=== PATIENT | male | born 1980 | race Hispanic/Latino ===

== ENCOUNTER 2023-05-18 14:06 | Emergency (ER) | payer SELFPAY ==
[2023-05-18 14:10] VITALS: BP 217/119; PULSE 132; RESP 20; TEMP 36.4; O2SAT 100; BMI 28.7
[2023-05-18 15:16] LABS: Add Manual Diff / Slide Review NO; Basophils Absolute Auto 0 /uL (0-100); Basophils Percent Auto 0.6 % (0-2); Eosinophils Absolute Auto 0 /uL (0-450); Eosinophils Percent Auto 0.4 % (2-4); Hematocrit 34.6 % (41-53); Hemoglobin 10.8 g/dL (13.5-17.5); Lymphocytes Absolute Auto 700 /uL (1100-4500); Lymphocytes Percent Auto 16.7 % (25-40); Mean Corpuscular HGB Conc 31.1 % (30-36); Mean Corpuscular Hemoglobin 23.7 PG (26-34); Mean Corpuscular Volume 76.3 fL (80-100); Monocytes Absolute Auto 300 /uL (0-900); Monocytes Percent Auto 6.8 % (3-14); Neutrophils Absolute Auto 3100 /uL (1500-7000); Neutrophils Percent Auto 75.5 % (50-75); Platelet Count 173 X10^3/uL (150-400); Red Blood Cell Count 4.54 X10^6/uL (4.5-5.9); White Blood Cell Count 4.1 X10^3/uL (4.5-11.0)
[2023-05-18 15:21] LABS: Alanine Aminotransferase 19 IU/L (<50); Albumin 4.2 g/dL (3.5-5.0); Alkaline Phosphatase 84 U/L (38-126); Aspartate Aminotransferase 33 IU/L (17-59); BUN Creatinine Ratio 14.3 (6-22); Bilirubin Total 0.7 mg/dL (0.2-1.3); Blood Urea Nitrogen 9 mg/dL (9-20); Calcium 8.9 mg/dL (8.4-10.2); Carbon Dioxide 24 mmol/L (22-32); Chloride 103 mmol/L (98-107); Estimated Glomerular Filt Rate > 60 mL/min (>60); Globulin 4.4 g/dL (1.7-4.1); Glucose 162 mg/dL (70-100); HEMOLYSIS < 15 (0-50); Lipase 202 U/L (23-300); Potassium 3.5 mmol/L (3.4-5.1); Sodium 141 mmol/L (137-145); Total Protein 8.6 g/dL (6.3-8.2)
--- NOTE | 2023-05-18 15:30 | ED.ABDPAIN ---
HPI - Abdominal Pain General Chief Complaint: Abdominal Pain Stated Complaint: retaining fluid in the stomach,pain,diff breathing Time Seen by Provider: 05/18/23 15:30 Source: patient Mode of arrival: Ambulatory Limitations: no limitations History of Present Illness HPI narrative: 42-year-old male with history of diabetes type 2, recent alcohol abuse quit proximally 2 months ago with increasing abdominal distention. Patient states his abdomen has become quite distended and uncomfortable. It is very tight. He has had nausea but no persistent vomiting. He states he is stooling regularly. He states he is urinating, does not notice any color changes. He has not appreciate any jaundice or skin changes. Patient states he has having a little bit of swelling in his lower extremities. Patient states no chest pain but he does feel short of breath from the fullness in his belly. Patient notes wet when he lays on his left side he is the most comfortable unable to sleep. Patient states has been slowly progressive over time. He states she has not been told he has liver issues but was drinking heavily until about 2 months ago. Patient states he has not on any prescription medications. No known drug allergies. Uses marijuana no reports of IV drugs. Patient has prior care through [facility] but prefers to follow up with your [facility] or other facilities. Related Data Allergies Allergy/AdvReac Type Severity Reaction Status Date / Time No Known Drug Allergies Allergy Verified 05/18/23 14:10 Review of Systems Review of Systems ROS Unobtainable: All systems reviewed & are unremarkable except as noted in HPI and below Patient History Social History Smoking Status: Never smoker Smoking Status: Never smoker Substance Use Type: marijuana Exam Narrative Exam Narrative: GENERAL: Alert and oriented x three, distress. HEENT: Head normocephalic, atraumatic, EOMI, pupils reactive, face symmetric, moist mucous membranes NECK: Supple, full range of motion CARDIOVASCULAR: Regular rate and rhythm without murmurs, rubs or gallops. RESPIRATORY: Breath sounds equal bilaterally, no wheezes rales or rhonchi. ABDOMEN: Soft, significantly distended male with fluid wave. Non-tender. No caput appreciated. Patient normoactive bowel sounds all 4 quadrants. No guarding or rebound, rigidity, no mass : No CVA tenderness EXTREMITIES: Normal range of motion, no clubbing, 2+ edema bilateral lower extremities. Neurovascularly intact NEUROLOGICAL: Cranial nerves II through XII grossly intact. Moving all extremities SKIN: Warm, dry, no petechiae, no rashes or lesions. Initial Vital Signs Initial Vital Signs: Vital Signs Temperature 97.5 F L 05/18/23 14:10 Pulse Rate 132 H 05/18/23 14:10 Respiratory Rate 20 05/18/23 14:10 Blood Pressure 217/119 H 05/18/23 14:10 Pulse Oximetry 100 05/18/23 14:10 Oxygen Delivery Method Room Air 05/18/23 14:10 Procedures Paracentesis Time Out Performed: Yes Indication: Ascites Procedure: therapeutic paracentesis Location: LLQ Local Anesthetic: lidocaine 2% Amount of anesthesia used (mL): 5 Bedside Ultrasound Used: yes, Ascites confirmed and location marked (and real time guidance.) Preparation: sterile prep and drape and Blade used to make casey in skin Amount of fluid obtained (mL): 5,000 Fluid: clear and sent to lab for analysis Size of Needle Used: 27 Post Procedure Exam: awake, alert, normal BP, normal HR and normal SpO2 Patient Tolerated Procedure: Well and No complications Course Orders Ordered: Discontinued Medications Ondansetron HCl (Ondansetron 4 Mg/2 Ml Inj) 4 mg IV NOW PRN PRN Reason: Nausea And Vomiting Ondansetron HCl (Ondansetron 4 Mg/2 Ml Inj) 4 mg IV NOW ONE Stop: 05/18/23 15:40 Last Admin: 05/18/23 15:47 Dose: 4 mg Documented By: MPO Vital Signs Vital signs: Vital Signs - 8 hr 05/18/23 14:10 05/18/23 16:53 Temperature 97.5 F L Pulse Rate 132 H Respiratory Rate 20 Blood Pressure 217/119 H 174/110 H Pulse Oximetry 100 Oxygen Delivery Method Room Air MDM - Abdominal Pain Lab Data 05/18/23 13:30 05/18/23 13:30 Labs: Lab Results 05/18/23 05/18/23 Range/Units 13:30 17:40 WBC 4.1 L (4.5-11.0) X10^3/uL RBC 4.54 (4.5-5.9) X10^6/uL Hgb 10.8 L (13.5-17.5) g/dL Hct 34.6 L (41-53) % MCV 76.3 L (80-100) fL MCH 23.7 L (26-34) PG MCHC 31.1 (30-36) % RDW 20.0 H (11.6-14.8) % Plt Count 173 (150-400) X10^3/uL Neut % (Auto) 75.5 H (50-75) % Lymph % (Auto) 16.7 L (25-40) % [place] % (Auto) 6.8 (3-14) % Eos % (Auto) 0.4 L (2-4) % Baso % (Auto) 0.6 (0-2) % Neut # (Auto) 3100 (9378-9872) /uL Lymph # (Auto) 700 L (3567-8853) /uL [place] # (Auto) 300 (0-900) /uL Eos # (Auto) 0 (0-450) /uL Baso # (Auto) 0 (0-100) /uL PT 14.4 H (9.4-12.5) SECONDS INR 1.3 (0.9-1.3) APTT 41 H (25.1-36.5) SECONDS Sodium 141 (137-145) mmol/L Potassium 3.5 (3.4-5.1) mmol/L Chloride 103 (98-107) mmol/L Carbon Dioxide 24 (22-32) mmol/L BUN 9 (9-20) mg/dL Creatinine 0.63 L (0.66-1.25) mg/dL Estimated GFR > 60 (>60) mL/min BUN/Creatinine Ratio 14.3 (6-22) Glucose 162 H (70-100) mg/dL Calcium 8.9 (8.4-10.2) mg/dL Total Bilirubin 0.7 (0.2-1.3) mg/dL AST 33 (17-59) IU/L ALT 19 (<50) IU/L Alkaline Phosphatase 84 (38-126) U/L Total Protein 8.6 H (6.3-8.2) g/dL Albumin 4.2 (3.5-5.0) g/dL Globulin 4.4 H (1.7-4.1) g/dL Albumin/Globulin Ratio 1.0 (1.0-2.8) Lipase 202 (23-300) U/L Fluid Color Yellow Fluid Appearance Clear Fluid RBC [id number] /uL Fld Tot Nucleated Cell 159 /uL Fluid Polynuclear WBCs 6 % Fluid Mononuclear WBCs 94 % Fluid Eosinophils 0 % Fluid Other Cells 0 % Body Fluid Clot No clots present Imaging Data CT scan - abdomen/pelvis: Radiologist's Impression: Jac Draper??42??M??1980 ? Allergy/Adv: No Known Drug Allergies Close Abdomen Ultrasound (Signed) DasNora denton - 05/18/23 Abdomen/Pelvis CT (Signed) Luc Glasgow - 05/18/23 Launch?[place] [address] CT Scan Report Signed Patient: Jac Draper MR#: [id number] : 1980 Acct:[id number] Age/Sex: 42 / M Date of Service: 05/18/23 Loc: ED Accession Number: [id number] Procedure: CT abdomen pelvis w con Ordering Provider: Nataila Ennis D.O. PROCEDURE: CT ABDOMEN PELVIS W CON INDICATIONS: ascites, history etoh abuse quit 2 months ago TECHNIQUE: After the administration of intravenous contrast, axial sections acquired from the lung bases to the pubic symphysis. Coronal and sagittal reformats were performed. For radiation dose reduction, the following was used: automated exposure control, adjustment of mA and/or kV according to patient size. COMPARISON: None. FINDINGS: Image quality: Diagnostic. Lower Chest: No significant findings. ABDOMEN: Liver: Somewhat shrunken, cirrhotic liver Gallbladder: Gallstones are present in the gallbladder. No gallbladder wall thickening Biliary ducts: No biliary dilation. Pancreas: No ductal dilation. Spleen: Splenomegaly. Spleen measures 15.9 cm Adrenal Glands: No adrenal nodules. Kidneys and Ureters: No hydronephrosis. No solid mass. No complex renal cystic lesion which requires follow up. Stomach and Bowel: Normal colonic caliber, without significant wall thickening. Peritoneum: Massive ascites. No free air or abscess Ventral Wall: No significant ventral hernia. Abdominal Nodes: No retroperitoneal or mesenteric adenopathy by size criteria. Vessels: Aorta and inferior vena cava are normal in size. Small varicosities PELVIS: Pelvic Organs: Unremarkable. Bladder: No bladder wall thickening, accounting for underdistention. Pelvic Nodes: No enlarged lymph nodes. Miscellaneous: No inguinal hernias are seen. Bones: No aggressive osseous abnormality. IMPRESSION: 1. Cirrhosis 2. Massive ascites 3. Splenomegaly, small varicosities 4. Cholelithiasis Dictated by: Luc Glasgow M.D. on 05/18/2023 at 16:36 US - abdomen: Radiologist's Impression: Close Abdomen Ultrasound (Signed) Nora Das - 05/18/23 Abdomen/Pelvis CT (Signed) Luc Glasgow - 05/18/23 Launch?[address] [address] Ultrasound Report Signed Patient: Jac Draper MR#: [id number] : 1980 Acct:[id number] Age/Sex: 42 / M Date of Service: 05/18/23 Loc: ED Accession Number: [id number] Procedure: US abdomen limited Ordering Provider: Natalia Ennis D.O. PROCEDURE: US ABDOMEN LIMITED INDICATIONS: ASCITES - YU FOR PARACENTESIS TECHNIQUE: Real-time focused scanning was performed of the abdomen, with image documentation. COMPARISON: None. FINDINGS: Prominent ascites is present in the right lower quadrant. Right lower quadrant was marked. IMPRESSION: Prominent right lower quadrant ascites with marking. Dictated by: Nora Das M.D. on 05/18/2023 at 18:07 Approved by: Nora Das M.D. on 05/18/2023 at 18:07 [facility] Narrative Medical decision making narrative: 42-year-old male with history of EtOH abuse who presents with significantly distended abdomen and exam consistent with the ascites. Patient states he quit drinking alcohol about 2 months ago. Has had increasing distention over time. Labs show white count of 4.1 hemoglobin of 10.8, microcytic anemia. Platelets are 173. Creatinine, renal function, LFTs are all negative. INR is 1.3 CT abdomen pelvis shows cirrhosis, massive ascites, splenomegaly with small varicosities, cholelithiasis. Discussed with patient he is open to paracentesis I think it would help him comfortable. Since this is his very 1st we will send cytology and fluid. Patient had 5 L off, did have some decrease in blood pressure but was quite hypertensive is still 170s to 150s systolic afterwards. Patient feels much improved afterwards. Given referral for Gastroenterology, he does have primary care [facility] but prefers to follow more locally at [facility]. Discharge Plan Departure Patient Disposition: Home Clinical Impression: Cirrhosis of liver with ascites Activity Restrictions/Additional Instructions: Follow up with Gastroenterology, contact was given for the office in [place]. Please call tomorrow to set up an appointment. I suspect your ascites, fluid in your belly is from cirrhosis or liver failure. This is likely from your prior alcohol use but follow up with Gastroenterology to make sure there is no other causes that are reversible. Sometimes they start patient is on medications that can be helpful as well. Please return for fever, significant abdominal pain, vomiting, black or bloody stools, lightheadedness or passing out, rapidly worsening swelling of your extremities or other new or concerning changes. Referrals: Khurram Quiros MD [Non-Staff] - Stand Alone Forms: Patient Portal/API
--- NOTE | 2023-05-18 15:38 | DI.CT.S_ITS ---
PROCEDURE: CT ABDOMEN PELVIS W CON INDICATIONS: ascites, history etoh abuse quit 2 months ago TECHNIQUE: After the administration of intravenous contrast, axial sections acquired from the lung bases to the pubic symphysis. Coronal and sagittal reformats were performed. For radiation dose reduction, the following was used: automated exposure control, adjustment of mA and/or kV according to patient size. COMPARISON: None. FINDINGS: Image quality: Diagnostic. Lower Chest: No significant findings. ABDOMEN: Liver: Somewhat shrunken, cirrhotic liver Gallbladder: Gallstones are present in the gallbladder. No gallbladder wall thickening Biliary ducts: No biliary dilation. Pancreas: No ductal dilation. Spleen: Splenomegaly. Spleen measures 15.9 cm Adrenal Glands: No adrenal nodules. Kidneys and Ureters: No hydronephrosis. No solid mass. No complex renal cystic lesion which requires follow up. Stomach and Bowel: Normal colonic caliber, without significant wall thickening. Peritoneum: Massive ascites. No free air or abscess Ventral Wall: No significant ventral hernia. Abdominal Nodes: No retroperitoneal or mesenteric adenopathy by size criteria. Vessels: Aorta and inferior vena cava are normal in size. Small varicosities PELVIS: Pelvic Organs: Unremarkable. Bladder: No bladder wall thickening, accounting for underdistention. Pelvic Nodes: No enlarged lymph nodes. Miscellaneous: No inguinal hernias are seen. Bones: No aggressive osseous abnormality. IMPRESSION: 1. Cirrhosis 2. Massive ascites 3. Splenomegaly, small varicosities 4. Cholelithiasis Dictated by: Luc Glasgow M.D. on 05/18/2023 at 16:36 Approved by: Luc Glasgow M.D. on 05/18/2023 at 16:45
[2023-05-18] MEDS: ONDANSETRON 4 MG/2 ML INJ IV (15:47)
[2023-05-18 16:01] LABS: INR 1.3 (0.9-1.3); Prothrombin Time 14.4 SECONDS (9.4-12.5)
[2023-05-18 16:03] LABS: PTT Partial Thromboplastin Tim 41 SECONDS (25.1-36.5)
--- NOTE | 2023-05-18 16:44 | DI.US.S_ITS ---
PROCEDURE: US ABDOMEN LIMITED INDICATIONS: ASCITES - YU FOR PARACENTESIS TECHNIQUE: Real-time focused scanning was performed of the abdomen, with image documentation. COMPARISON: None. FINDINGS: Prominent ascites is present in the right lower quadrant. Right lower quadrant was marked. IMPRESSION: Prominent right lower quadrant ascites with marking. Dictated by: Nora Das M.D. on 05/18/2023 at 18:07 Approved by: Nora Das M.D. on 05/18/2023 at 18:07
[2023-05-18 16:53] VITALS: BP 174/110
--- NOTE | 2023-05-18 17:21 | PC.NURSE ---
Dr Ennis performed paracentesis. Pt tolerated well. 5L clear yellow fluid drained.
[2023-05-18 18:21] VITALS: BP 171/106; PULSE 115; RESP 24; O2SAT 100
[2023-05-18 18:23] LABS: Body Fluid Tot Nucleated Cells 159 /uL
[2023-05-18 18:30] VITALS: BP 167/102; PULSE 111; O2SAT 100
[2023-05-18 18:35] LABS: Body Fluid Appearance CLEAR; Body Fluid Clotted? NO CLOTS PRESENT; Body Fluid Color YELLOW; Eosinophils Body Fluid 0 %; Mononuclear WBC Body Fluid 94 %; Other Cells Body Fluid 0 %; Polynuclear WBC Body Fluid 6 %
[2023-05-18 18:45] VITALS: BP 176/96; PULSE 106; RESP 18; O2SAT 100
[2023-05-18 18:58] VITALS: TEMP 36.9
== END 2023-05-18 19:00 | disposition home or self-care (01) ==
PROVIDERS: Emergency Provider Emergency Medicine
DX: K74.60 Unspecified cirrhosis of liver (principal); R18.8 Other ascites
CPT/HCPCS: 36415; 49082; 74177; 76705; 80053; 83690; 85025; 85610; 85730; 89051; 96374; 99284; J2405; Q9967